=== PATIENT | female | born 1940 | race Two or more races ===

== ENCOUNTER → 2019-11-03 08:00 | Outpatient (CLI) | payer OTHER | END | disposition home or self-care (01) | LOC: LAB 08:00 → ADM 12:00 → AMB-ENDOS 11-10 12:00 → EDSTATUS 11-10 12:00 | PROVIDERS: ATTEND Surgery | DX: U07.1 COVID-19 (principal); D12.7 Benign neoplasm of rectosigmoid junction; D37.4 Neoplasm of uncertain behavior of colon; K62.5 Hemorrhage of anus and rectum ==